=== PATIENT | female | born 1965 | race Caucasian/White ===

== ENCOUNTER → 2017-11-20 07:29 | Outpatient (CLI) | payer OTHER, SELFPAY ==
[2017-11-20 08:26] LABS: Add Manual Diff / Slide Review NO; Basophils Percent Auto 0.3 % (0-2); Eosinophils Percent Auto 0.8 % (2-4); Hematocrit 44.4 % (36-46); Hemoglobin 14.8 g/dL (12.0-16.0); Lymphocytes Percent Auto 41.1 % (25-40); Mean Corpuscular HGB Conc 33.3 % (30-36); Mean Corpuscular Hemoglobin 29.6 PG (26-34); Mean Corpuscular Volume 88.9 fL (80-100); Monocytes Percent Auto 6.5 % (3-14); Neutrophils Absolute Auto 3600 /uL (3000-5900); Neutrophils Percent Auto 51.3 % (50-75); Platelet Count 387 X10^3/uL (150-400); Red Blood Cell Count 4.99 X10^6/uL (4.0-5.2); Red Cell Distribution Width 13.7 % (11.6-14.8); White Blood Cell Count 7.1 X10^3/uL (4.5-11.0)
[2017-11-20 09:11] LABS: Alanine Aminotransferase 25 IU/L (9-52); Albumin 4.5 g/dL (3.5-5.0); Albumin Globulin Ratio 1.3 (1.0-2.8); Alkaline Phosphatase 54 U/L (38-126); Aspartate Aminotransferase 21 IU/L (14-36); Bilirubin Total 0.5 mg/dL (0.2-1.3); Blood Urea Nitrogen 16 mg/dL (7-17); Calcium 9.2 mg/dL (8.4-10.2); Carbon Dioxide 28 mmol/L (22-32); Chloride 105 mmol/L (98-107); Cholesterol 240 mg/dL (140-199); Estimated Glomerular Filt Rate > 60.0 mL/min (>60); Globulin 3.4 g/dL (1.7-4.1); Glucose 97 mg/dL (70-100); HDL Cholesterol 51 mg/dL (40-60); HEMOLYSIS < 15 (0-50); LDL Cholesterol Calculated 151 mg/dL (<100); Sodium 146 mmol/L (137-145); Total Protein 7.9 g/dL (6.3-8.2); Triglycerides 188 mg/dL (35-150)
[2017-11-20 09:55] LABS: TSH w/ Reflex to FT4 2.31 uIU/mL (0.47-4.68)
== END ==
PROVIDERS: PCP Family Medicine; Visit Provider Family Medicine
DX: Z13.220 Encounter for screening for lipoid disorders (principal)
CPT/HCPCS: 36415; 80053; 80061; 84443; 85025

== ENCOUNTER 2019-03-10 12:02 | Day surgery (SDC) | payer OTHER, SELFPAY ==
[2019-03-10 12:23] VITALS: BP 157/86; PULSE 82; RESP 16; TEMP 36.7; O2SAT 99; BMI 31.1
[2019-03-10] MEDS: SODIUM CHLORIDE 0.9% 1,000 ML 200 ML IV (12:40)
--- NOTE | 2019-03-10 13:10 | PM.HP.1 ---
History of Present Illness History of Present Illness Date Patient Seen: 03/10/19 Time Patient Seen: 13:10 Chief complaint: [id number] Narrative: Patient presents for colorectal screening. They have never had any previous examination for such. No personal or family history of colon cancer. On further history denies any recent gastrointestinal symptoms. No nausea, vomiting, abdominal pain, loss of appetite, unexplained weight loss, change in bowel habits, diarrhea, constipation, melena, hematochezia, or bright red blood per rectum. Patient History Medical History Abnormal Pap smear of cervix (Chronic ~1996) Anxiety (Chronic ~1989) Chronic back pain (Chronic ~2017) Colitis (Chronic ~2005) Eczema (Chronic ~2001) Irregular menstrual cycle (Chronic ~2015) Irritable bowel syndrome (Chronic ~1993) Seasonal allergies (Chronic) Family & Social History Family History Father MVA (motor vehicle accident) Grandfather No problems noted. Grandmother Cancer Mother No problems noted. Grandfather Sepsis Grandmother No problems noted. Sister Cardiomyopathy Social History: household members spouse Tobacco & Substance use: Smoking Status Never smoker alcohol intake current Substance Use Type does not use Meds Home Medications and Allergies Home Medications Medication Instructions Recorded Confirmed Type omeprazole 20 mg capsule,delayed 20 mg PO DAILY #30 cap 12/07/18 12/07/18 Rx release Allergies Allergy/AdvReac Type Severity Reaction Status Date / Time Sulfa (Sulfonamide Allergy Severe Anxiety Verified 12/07/18 10:56 Antibiotics) [SULFA (SULFONAMIDE ANTIBIOTICS)] Review of Systems Review of Systems Narrative: A 10 point review of systems is negative except as noted in the HPI Exam Vital Signs (past 8 hours): - 03/10/19 12:23 Temperature 98.0 F Pulse Rate 82 Respiratory Rate 16 Blood Pressure 157/86 H Pulse Oximetry 99 Oxygen Delivery Method Room Air Narrative Exam Narrative: General-no acute distress, well nourished HEENT-moist mucous membranes, no scleral icterus Neck-supple, no lymphadenopathy Chest- non labored respirations, clear to auscultation bilaterally Cardiac-regular rate no peripheral edema Abdomen-soft, nontender, non distended Extremities-warm, well perfused Neurological-alert and oriented, no focal deficits Assessment & Plan Assessment and plan (1) Screening for colon cancer: Current visit: Yes Status: Acute Assessment & Plan narrative: The patient requires colorectal screening and colonoscopy is recommended. Technical details were discussed. Risks, benefits, alternatives explained. Risks including but not limited to myocardial infarction, aspiration, bleeding, pain, missed lesion, incomplete examination, need for further radiographic studies, colonic perforation, and need for major abdominal surgery were discussed. All questions were answered to their satisfaction, and they are in agreement with this plan.
[2019-03-10] MEDS: MIDAZOLAM 5 MG/5 ML VIAL IV (13:12)
[2019-03-10] MEDS: fentaNYL 250 MCG/5 ML INJ IV (13:13)
--- NOTE | 2019-03-10 13:38 | P.HP_ITS ---
History of Present Illness History of Present Illness Chief complaint: [id number] Narrative: Patient presents for colorectal screening. They have never had any previous examination for such. No personal or family history of colon cancer. On further history denies any recent gastrointestinal symptoms. No nausea, vom iting, abdominal pain, loss of appetite, unexplained weight loss, change in bowel habits, diarrhea, constipation, melena, hematochezia, or bright red blood per rectum. Patient History Medical History Abnormal Pap smear of cervix (Chronic ~1996) Anxiety (Chronic ~1989) Chronic back pain (Chronic ~2017) Colitis (Chronic ~2005) Eczema (Chronic ~2001) Irregular menstrual cycle (Chronic ~2015) Irritable bowel syndrome (Chronic ~1993) Seasonal allergies (Chronic) Family & Social History Family History Father MVA (motor vehicle accident) Grandfather No problems noted. Grandmother Cancer Mother No problems noted. Grandfather Sepsis Grandmother No problems noted. Sister Cardiomyopathy Social History: household members spouse Tobacco & Substance use: Smoking Status Never smoker alcohol intake current Substance Use Type does not use Meds Home Medications and Allergies Home Medications Medication Instructions Recorded Confirmed Type omeprazole 20 mg capsule,delayed 20 mg PO DAILY #30 cap 12/07/18 12/07/18 Rx release Allergies Allergy/AdvReac Type Severity Reaction Status Date / Time Sulfa (Sulfonamide Allergy Severe Anxiety Verified 12/07/18 10:56 Antibiotics) [SULFA (SULFONAMIDE ANTIBIOTICS)] Exam Vital Signs (past 8 hours): - 03/10/19 12:23 Temperature 98.0 F Pulse Rate 82 Respiratory Rate 16 Blood Pressure 157/86 H Pulse Oximetry 99 Oxygen Delivery Method Room Air
--- NOTE | 2019-03-10 13:39 | PM.OP.ENDO ---
Operative Date/Time/Diagnoses Date of procedure: 03/10/19 Time of procedure: 13:39 Pre-op diagnosis: screening Post-op diagnosis: same Procedure & Clinicians Study performed: Colonoscopy Same procedure as scheduled: Yes Indications: 53-year-old female no prior colonoscopy presents for routine screening. Procedure Notes SCOAP/Timeout: Performed Procedure in detail: Patient placed in left lateral decubitus position. Time out was performed. Procedural sedation was administered with Versed and Fentanyl. A rectal exam demonstrated no external hemorrhoids no internal masses. Colonoscopy scope was placed into the rectum and advanced through the colon to the cecum. The ileocecal valve was identified. The scope was then slowly withdrawn examining colon thoroughly in all directions. The colonoscopy was notable for the following 1. No masses or polyps 2. Sigmoid diverticulosis 3. Quality of prep excellent Scope withdrawal time: 6 Sedation minutes: 23 Findings: diverticulosis Specimen(s): none sent Complications: none Impression: Diverticulosis Post-procedure Recommendations: Colonscopy in 10 years Disposition: same day surgery
[2019-03-10 13:42] VITALS: BP 129/85; PULSE 88; RESP 13; TEMP 36.5; O2SAT 95
[2019-03-10 13:47] VITALS: BP 130/79; PULSE 97; RESP 17; TEMP 36.9; O2SAT 97
[2019-03-10 13:52] VITALS: BP 141/88; PULSE 81; RESP 18; TEMP 36.8; O2SAT 97
[2019-03-10 13:57] VITALS: BP 130/83; PULSE 78; RESP 12; TEMP 36.2; O2SAT 97
[2019-03-10 14:30] VITALS: BP 126/82; PULSE 67; RESP 12; TEMP 36.5; O2SAT 99
== END 2019-03-10 14:37 | disposition home or self-care (01) ==
PROVIDERS: PCP Family Medicine; Visit Provider Surgery
PROC: 0DJD8ZZ Inspection of Lower Intestinal Tract, Via Natural or Artificial Opening Endoscopic (ICD-10-PCS; CPT 45378; principal; 2019-03-10 13:00)
DX: Z12.11 Encounter for screening for malignant neoplasm of colon (principal); K57.30 Diverticulosis of large intestine without perforation or abscess without bleeding
CPT/HCPCS: 45378; 99152; J2250; J3010

== ENCOUNTER → 2019-03-24 15:18 | Outpatient (CLI) | payer OTHER, SELFPAY ==
--- NOTE | 2019-03-24 15:19 | DI.MG.S_ITS ---
BILATERAL DIGITAL SCREENING MAMMOGRAM 3D/2D WITH CAD: 03/24/2019 CLINICAL: Routine screening. Comparison is made to exams dated: 12/05/2015 mammogram and 11/09/2013 mammogram - [facility]. There are scattered fibroglandular elements in both breasts. Current study was also evaluated with a Computer Aided Detection (CAD) system. No significant masses, calcifications, or other findings are seen in either breast. There has been no significant interval change. IMPRESSION: NEGATIVE There is no mammographic evidence of malignancy. A 1 year screening mammogram is recommended. This exam was interpreted at Station ID: [id number]. NOTE: For mammograms, a report in lay terms will be sent to the patient. Approximately 15% of breast malignancies will not be visualized mammographically. In the management of a palpable breast mass, a negative mammogram must not discourage biopsy of a clinically suspicious lesion. Electronically Signed By: Daniel tabor/jassi:03/25/2019 18:22:32 letter sent: Normal Exam ACR BI-RADS Category 1: Negative 3341F
== END ==
PROVIDERS: PCP Family Medicine; Referring Provider Family Medicine; Visit Provider Family Medicine
DX: Z12.31 Encounter for screening mammogram for malignant neoplasm of breast (principal)
CPT/HCPCS: 77063; 77067

== ENCOUNTER → 2019-08-18 11:57 | Outpatient (CLI) | payer OTHER, SELFPAY ==
[2019-08-18 13:30] LABS: Appearance Urine UA CLEAR; Bilirubin Urine UA NEGATIVE (NEGATIVE); Color Urine UA YELLOW; Glucose Urine UA NEGATIVE (Negative); Ketones Urine UA NEGATIVE (NEGATIVE); Leukocyte Esterase Urine UA NEGATIVE (NEGATIVE); Nitrite Urine UA NEGATIVE (Negative); Occult Blood Urine UA 1+ (Negative); Protein Urine UA NEGATIVE (Negative); Specific Gravity Urine UA <=1.005 (1.000-1.035); Urobilinogen Urine UA 0.2 E.U./dL (0.2)
[2019-08-18 13:43] LABS: Bacteria Urine None Seen
[2019-08-18 13:54] LABS: RBC Urine 0-1/HPF (0-5/HPF); Squamous Epithelial Cell Urine 0-1 /HPF (0-5/HPF); WBC Urine 0-1/HPF (0-5/HPF)
[2019-08-18 13:55] LABS: Culture Indicated Urine Cult Not Indicated
== END ==
PROVIDERS: PCP Family Medicine; Referring Provider Family Medicine; Visit Provider Family Medicine
DX: R30.0 Dysuria (principal)
CPT/HCPCS: 81003; 81015

== ENCOUNTER → 2019-08-25 10:38 | Outpatient (CLI) | payer OTHER, SELFPAY ==
--- NOTE | 2019-08-25 10:44 | DI.CT.S_ITS ---
PROCEDURE: CT KIDNEY URETER BLADDER (KUB) INDICATIONS: flank pain TECHNIQUE: Noncontrast 5 mm thick sections acquired from the diaphragms to the symphysis. 5 mm thick coronal and sagittal reformats were then performed. For radiation dose reduction, the following was used: automated exposure control, adjustment of mA and/or kV according to patient size. COMPARISON: None. FINDINGS: Image quality: Excellent. Lung bases: Lung bases are clear. Heart size is normal. Urinary system: Both kidneys are normal in size. No kidney stones. No hydronephrosis or perinephric fat stranding. Both ureters appear non-dilated throughout their expected courses. Bladder wall thickness is normal; no calcified bladder stones. Other solid organs: Liver is normal in size. Gallbladder appears normal . Pancreas is normal in contours. Spleen is normal in size. No adrenal nodules. Peritoneum and bowel: Unenhanced bowel loops demonstrate normal wall thickness and caliber. No free fluid or air. Nodes and vessels: No retroperitoneal or mesenteric adenopathy by size criteria. Aorta and inferior vena cava are normal in caliber. Abdominal wall: No ventral hernias. Pelvis: No free pelvic fluid. No inguinal hernias or adenopathy. Bones: No suspicious bony lesions. No vertebral body compression fractures. IMPRESSION: A source of hematuria is not seen. No mass or urinary tract stone is found. This study does not include contrast administration and for this reason its ability to detect a small renal cortical carcinoma or urothelial neoplasm is limited. Dictated by: Cecilio Reyes M.D. on 08/25/2019 at 11:20 Approved by: Cecilio Reyes M.D. on 08/25/2019 at 11:49
== END ==
PROVIDERS: PCP Family Medicine; Referring Provider Family Medicine; Visit Provider Family Medicine
DX: R10.9 Unspecified abdominal pain (principal); R31.9 Hematuria, unspecified
CPT/HCPCS: 74176

== ENCOUNTER → 2021-03-19 09:50 | Outpatient (CLI) | payer OTHER, SELFPAY ==
[2021-03-19 11:03] LABS: Add Manual Diff / Slide Review NO; Basophils Absolute Auto 0 /uL (0-100); Basophils Percent Auto 0.3 % (0-2); Eosinophils Absolute Auto 0 /uL (0-450); Eosinophils Percent Auto 0.7 % (2-4); Hematocrit 44.2 % (36-46); Hemoglobin 14.8 g/dL (12.0-16.0); Lymphocytes Absolute Auto 1800 /uL (1100-4500); Lymphocytes Percent Auto 32.8 % (25-40); Mean Corpuscular HGB Conc 33.5 % (30-36); Mean Corpuscular Hemoglobin 29.5 PG (26-34); Monocytes Absolute Auto 400 /uL (0-900); Monocytes Percent Auto 6.2 % (3-14); Neutrophils Absolute Auto 3400 /uL (1500-7000); Platelet Count 324 X10^3/uL (150-400); Red Blood Cell Count 5.02 X10^6/uL (4.0-5.2); Red Cell Distribution Width 13.5 % (11.6-14.8); White Blood Cell Count 5.6 X10^3/uL (4.5-11.0)
[2021-03-19 11:13] LABS: Alanine Aminotransferase 26 IU/L (<35); Albumin 4.5 g/dL (3.5-5.0); Albumin Globulin Ratio 1.3 (1.0-2.8); Alkaline Phosphatase 62 U/L (38-126); Aspartate Aminotransferase 26 IU/L (14-36); BUN Creatinine Ratio 14.9 (6-22); Bilirubin Total 0.6 mg/dL (0.2-1.3); Blood Urea Nitrogen 13 mg/dL (7-17); Calcium 9.4 mg/dL (8.4-10.2); Carbon Dioxide 30 mmol/L (22-32); Chloride 107 mmol/L (98-107); Cholesterol 252 mg/dL (140-199); Estimated Glomerular Filt Rate > 60.0 mL/min (>60); Globulin 3.5 g/dL (1.7-4.1); Glucose 106 mg/dL (70-100); HDL Cholesterol 56 mg/dL (40-60); HEMOLYSIS < 15 (0-50); LDL Cholesterol Calculated 156 mg/dL (<100); Potassium 4.5 mmol/L (3.4-5.1); Sodium 141 mmol/L (137-145); Triglycerides 201 mg/dL (35-150)
[2021-03-19 11:49] LABS: Thyroid Stimulating Hormone 1.69 uIU/mL (0.47-4.68)
== END ==
PROVIDERS: PCP Family Medicine; Referring Provider Physician Assistant; Visit Provider Physician Assistant
DX: E78.5 Hyperlipidemia, unspecified (principal); Z13.0 Encounter for screening for diseases of the blood and blood-forming organs and certain disorders involving the immune mechanism
CPT/HCPCS: 36415; 80053; 80061; 84443; 85025

== ENCOUNTER → 2021-05-31 11:07 | Outpatient (CLI) | payer OTHER, SELFPAY ==
[2021-05-31 12:46] LABS: Cholesterol 169 mg/dL (140-199); HDL Cholesterol 60 mg/dL (40-60); LDL Cholesterol Calculated 70 mg/dL (<100); Triglycerides 193 mg/dL (35-150)
== END ==
PROVIDERS: PCP Family Medicine; Referring Provider Physician Assistant; Visit Provider Physician Assistant
DX: E78.2 Mixed hyperlipidemia (principal)
CPT/HCPCS: 36415; 80061

== ENCOUNTER → 2022-05-20 10:55 | Outpatient (CLI) | payer OTHER, SELFPAY | PROVIDERS: PCP Family Medicine; Visit Provider Physician Assistant | DX: N39.0 Urinary tract infection, site not specified (principal) | CPT/HCPCS: 87086 ==

== ENCOUNTER → 2022-05-26 08:12 | Outpatient (CLI) | payer OTHER, SELFPAY ==
[2022-05-26 09:14] LABS: Cholesterol 174 mg/dL (140-199); HDL Cholesterol 57 mg/dL (40-60); LDL Cholesterol Calculated 76 mg/dL (<100); Triglycerides 203 mg/dL (35-150)
== END ==
PROVIDERS: PCP Family Medicine; Referring Provider Physician Assistant; Visit Provider Physician Assistant
DX: E78.2 Mixed hyperlipidemia (principal); B37.31 Acute candidiasis of vulva and vagina; N95.2 Postmenopausal atrophic vaginitis
CPT/HCPCS: 36415; 80061; 87210

== ENCOUNTER → 2022-07-04 08:42 | Outpatient (CLI) | payer OTHER, SELFPAY ==
--- NOTE | 2022-07-04 08:43 | DI.US.S_ITS ---
PROCEDURE: US PELVIC COMPLETE INDICATIONS: Post menopausal bleeding TECHNIQUE: Real-time scanning was performed of the pelvic organs, with image documentation. Additional endovaginal scanning was necessary due to incomplete visualization of the adnexal and endometrial structures by transabdominal scanning. COMPARISON: None. FINDINGS: Uterus: Uterus is anteverted and normal in size at 7.3 x 5.2 x 3.4 cm. The myometrium is homogeneous. The endometrium measures 6 mm combined thickness. There is a vascular stalk located within the endometrium. Ovaries: Ovaries not visualized due to overlying bowel gas. Other: No pathologic free abdominal or pelvic fluid. IMPRESSION: Abnormal thickening of the endometrium, measuring 6 millimeters, in the setting of postmenopausal bleeding. Consider tissue sampling. Vascular stalk noted within the endometrium, which may suggest a polyp. We strive to produce accurate, complete, and clear reports of imaging services. To assist us in improving patient care, this report was composed using standard report templates and voice recognition software. Therefore, it may contain abnormal punctuation, insertions and/or omissions. Occasional wrong-word or sound-alike substitutions may occur. Though we review the report and make efforts to correct it, we do recommend that the report be read carefully in proper context to recognize any text inaccuracies. Dictated by: Bhavin Rock M.D. on 07/04/2022 at 11:37 Approved by: Bhavin Rock M.D. on 07/04/2022 at 11:39
== END ==
PROVIDERS: PCP Family Medicine; Referring Provider Family Medicine; Visit Provider Family Medicine
DX: N95.0 Postmenopausal bleeding (principal)
CPT/HCPCS: 76830; 76856

== ENCOUNTER 2022-09-12 06:46 | Day surgery (SDC) | payer OTHER, SELFPAY ==
[2022-09-09 14:55] VITALS: BMI 34.9
--- NOTE | 2022-09-12 | PATH_ITS ---
[facility] Accession Number: [id number] No. of containers..02 Tissue . 01 Material submitted: . PART A: endometrium - ENDOMETRIAL POLYP PART B: endometrium - ENDOMETRIAL CURETTINGS . 01 Diagnosis: A. Endometrial Polyp, Biopsy: Benign endometrial polyp. Negative for atypia, hyperplasia, and malignancy. . B. Endometrium, Curettings: Predominantly inactive endometrium, with stromal breakdown. Negative for hyperplasia, atypia, and malignancy. MRV 09/22/2022 1702 Local . 01 Electronically signed: . Abilio Prather MD, Pathologist NPI- [id number] . 01 Gross description: . A. Received in formalin labeled with the patient's name, and endometrial polyp consists of a single pink-castellanos polypoid structure measuring 1.4 x 1.3 x 0.5 cm. The presumed base is inked blue. The tissue is bisected and entirely submitted in cassette A1. B. Received in formalin labeled with the patient's name, and endometrial curettings consists of multiple fragments of pink-castellanos soft tissue and blood clots aggregating to 2.5 x 0.7 x 0.1 cm. The tissue is filtered into a mesh bag and entirely submitted in cassette B1. ([id number]) /MRV 09/18/2022 1556 Local . 01 Pathologist provided ICD-10: N84.0, N95.0 . 01 CPT . 332188, 221064 Specimen Comment: A courtesy copy of this report has been sent to [phone] Performed at: 01 [facility] [address] [place] [address] [address], [place], [place] [id number] MD Henry Ramos MD Phone: [phone]
[2022-09-12 07:03] VITALS: BP 144/89; PULSE 87; RESP 16; TEMP 36.2; O2SAT 144; BMI 34.9
--- NOTE | 2022-09-12 07:18 | SUR.OPER ---
Lithotomy on padded OR bed, head on pillow, arms secured on padded arm boards at <90 degrees abduction. Legs secured in padded yellow fins stirrups.
[2022-09-12] MEDS: LACTATED RINGERS 1,000 ML 84 ML IV (07:19)
--- NOTE | 2022-09-12 07:34 | PM.PREOP ---
Pre-operative Note COVID-19 COVID-19 status: Not tested Criteria for continued procedure: Non-surgical alternatives not available or appropriate per current SOC Interval Note History & Physical reviewed/Exam performed by Physician: Yes Changes to H&P: No
--- NOTE | 2022-09-12 08:12 | P.OP_ITS ---
Operative Date/Time/Diagnoses Date of procedure: 09/12/22 Time of procedure: 07:45 Pre-op diagnosis: Postmenopausal bleeding Endometrial polyp Post-op diagnosis: same Procedure & Clinicians Procedure: Procedures Operation Date: 09/12/22 07:45 Actual Procedure Side Surgeon p Hysteroscopy w. polypectomy, D&C of the uterus Gadiel Garcia MD Indications: Chhaya is a 56-year-old 2 para 2, LMP about 18 months ago who presents with recent onset of light vaginal spotting and a subsequent pelvic ultrasound showed very slight endometrial thickening along with what appears to be an endometrial polyp the ultrasound performed on 07/04/2022 shows: FINDINGS:? ?? Uterus:? Uterus is anteverted and normal in size at 7.3 x 5.2 x 3.4 cm. The myometrium is homogeneous. ? The endometrium measures 6 mm combined thickness.? There is a vascular stalk located within the endometrium. ? Ovaries:? Ovaries not visualized due to overlying bowel gas. ? Other:? No pathologic free abdominal or pelvic fluid. ? ? IMPRESSION:? Abnormal thickening of the endometrium, measuring 6 millimeters, in the setting of postmenopausal bleeding.? Consider tissue sampling. ? Vascular stalk noted within the endometrium, which may suggest a polyp. The patient has a long history of irregular and occasionally heavy menses associated with a previous history of polycystic ovarian syndrome.? Following the fairly chaotic perimenopause, the patient's stopped having vaginal bleeding about 18 months ago up until a few weeks ago when after vaginal estrogen supplementation was initiated by her primary care provider, she began having a couple of episodes of light vaginal spotting.? Potential causes for her postmenopausal bleeding discussed.? It is conceivable that the initiation of transvaginal estradiol may have triggered the episodes of bleeding but in the presence of a demonstrable, localized abnormality of the endometrial cavity, the polyp would have to be considered the primary suspect as the etiology for her bleeding.? Because the lesion is focal in nature, random endometrial biopsy by [facility] would be of little benefit and instead we discussed the benefits of proceeding with hysteroscopy and removal of the polyp.? She presents today for her scheduled surgery. Surgeon: Gadiel Garcia Anesthesia Type: General Operative Notes Findings: Single benign-appearing polyp arising from left posterolateral surface of the endometrial cavity. The remainder of the endometrial cavity is unremarkable low, bland, endometrial surface and easily visualize tubal ostia. Closure Type: not applicable Specimen(s): endometrial curettings and endometrial polyp Estimated blood loss (mL): 10 Blood products transfused: none Procedure in detail: With the patient under satisfactory general anesthesia in the modified dorsal lithotomy position, the patient was prepped and draped for hysteroscopy/D&C. A pre-surgical safety time-out was then taken in accordance with [facility] Main OR protocols. A bivalve speculum was then inserted in the vagina and the anterior lip of the cervix was grasped with a single-tooth tenaculum. The uterus is sounded to 7.5 cm and the endocervical canal was sequentially dilated to 6 mm with Hegar dilators. Hysteroscope using sterile saline distention medium was introduced into the endometrial cavity and the polyp easily identified. The endometrial cavity was documented photographically both before and after polyp removal. The hysteroscope was removed from the endometrial cavity and based on the visualized location of the polyp, the polyp was grasped at its base with polyp forceps and removed manually. Inspection of the endometrial cavity with hysteroscope showed complete removal of the polyp itself. Sharp curettage of the uterus this then performed and the endometrial curettings were submitted as a separate pathologic specimen. The procedure was then terminated by removal of the tenaculum from the anterior lip of the cervix and removal the speculum from the vagina. The patient was then awakened and transferred to the PACU for a period of observation and recovery after having tolerated the procedure well. Complications: none Post-operative Condition: stable Disposition: PACU Plan for aftercare: Routine postoperative care with follow-up planned for 2 weeks postop
[2022-09-12 08:14] VITALS: BP 118/70; PULSE 92; RESP 16; TEMP 36.6; O2SAT 95
[2022-09-12 08:19] VITALS: BP 118/47; PULSE 88; RESP 14; O2SAT 97
[2022-09-12 08:25] VITALS: BP 115/61; PULSE 81; RESP 12; O2SAT 95
[2022-09-12 08:30] VITALS: BP 119/78; PULSE 90; RESP 16; O2SAT 95
== END 2022-09-12 08:42 | disposition home or self-care (01) ==
PROVIDERS: PCP Family Medicine; Referring Provider Obstetrics & Gynecology; Visit Provider Obstetrics & Gynecology
PROC: 0UDB8ZZ Extraction of Endometrium, Via Natural or Artificial Opening Endoscopic (ICD-10-PCS; CPT 58558; principal; 2022-09-12 07:45)
DX: N95.0 Postmenopausal bleeding (principal); N84.0 Polyp of corpus uteri
CPT/HCPCS: 58558; J1100; J2250; J2405; J2704; J3010

== ENCOUNTER → 2023-03-02 17:10 | Outpatient (CLI) | payer OTHER, SELFPAY ==
--- NOTE | 2023-03-02 17:12 | DI.MG.S_ITS ---
BILATERAL DIGITAL SCREENING MAMMOGRAM 3D/2D WITH CAD: 03/02/2023 CLINICAL: Routine screening. Comparison is made to exams dated: 03/24/2019 mammogram - [facility], 12/05/2015 mammogram, and 11/09/2013 mammogram - [facility]. There are scattered areas of fibroglandular density in both breasts (category b / 25%-50% glandular tissue). Current study was also evaluated with a Computer Aided Detection (CAD) system. No significant masses, calcifications, or other findings are seen in either breast. There has been no significant interval change. IMPRESSION: NEGATIVE There is no mammographic evidence of malignancy. A 1 year screening mammogram is recommended. Based on the Tyrer Cuzick model (a risk assessment model) the patient's lifetime risk is 9.6% and her 10 year risk is 2.9%. According to the ACR, ACS, and NCCN guidelines, an annual breast MRI exam along with mammogram is recommended if the patient's lifetime risk is 20% or greater. This exam was interpreted at Station ID: [id number]. NOTE: For mammograms, a report in lay terms will be sent to the patient. Approximately 15% of breast malignancies will not be visualized mammographically. In the management of a palpable breast mass, a negative mammogram must not discourage biopsy of a clinically suspicious lesion. Electronically Signed By: Nazanin Guajardo M.D., PH.D denice/jassi:03/03/2023 13:02:26 letter sent: Normal Exam ACR BI-RADS Category 1: Negative 3341F
== END ==
PROVIDERS: PCP Family Medicine; Referring Provider Family Medicine; Visit Provider Family Medicine
DX: Z12.31 Encounter for screening mammogram for malignant neoplasm of breast (principal); R92.323 Mammographic fibroglandular density, bilateral breasts
CPT/HCPCS: 77063; 77067

== ENCOUNTER → 2023-09-03 09:52 | Outpatient (CLI) | payer OTHER, SELFPAY ==
[2023-09-03 10:38] LABS: Alanine Aminotransferase 28 IU/L (<35); Albumin 4.2 g/dL (3.5-5.0); Albumin Globulin Ratio 1.4 (1.0-2.8); Alkaline Phosphatase 68 U/L (38-126); Aspartate Aminotransferase 25 IU/L (14-36); BUN Creatinine Ratio 14.8 (6-22); Bilirubin Total 0.7 mg/dL (0.2-1.3); Blood Urea Nitrogen 13 mg/dL (7-17); Calcium 9.4 mg/dL (8.4-10.2); Carbon Dioxide 27 mmol/L (22-32); Chloride 108 mmol/L (98-107); Cholesterol 192 mg/dL (140-199); Estimated Glomerular Filt Rate > 60 mL/min (>60); Glucose 101 mg/dL (70-100); HDL Cholesterol 65 mg/dL (40-60); HEMOLYSIS < 15 (0-50); LDL Cholesterol Calculated 95 mg/dL (<100); Potassium 4.6 mmol/L (3.4-5.1); Sodium 140 mmol/L (137-145); Total Protein 7.2 g/dL (6.3-8.2); Triglycerides 162 mg/dL (35-150)
== END ==
PROVIDERS: PCP Family Medicine; Referring Provider Physician Assistant; Visit Provider Physician Assistant
DX: E78.2 Mixed hyperlipidemia (principal)
CPT/HCPCS: 36415; 80053; 80061; 84443

== ENCOUNTER → 2023-11-27 | Outpatient (CLI) | payer OTHER, SELFPAY | PROVIDERS: PCP Family Medicine; Referring Provider Internal Medicine; Visit Provider Internal Medicine | DX: Z23 Encounter for immunization (principal) | CPT/HCPCS: 90471; 90656 ==

== ENCOUNTER → 2024-03-03 15:12 | Outpatient (CLI) | payer OTHER, SELFPAY ==
--- NOTE | 2024-03-03 15:14 | DI.US.S_ITS ---
PROCEDURE: US PELVIC COMPLETE INDICATIONS: postmenopausal bleeding TECHNIQUE: Real-time scanning was performed of the pelvic organs, with image documentation. Additional endovaginal scanning was necessary due to incomplete visualization of the adnexal and endometrial structures by transabdominal scanning. COMPARISON: [facility], , PELVIC COMPLETE, 07/04/2022, 8:49. FINDINGS: Uterus: Uterus is anteverted and normal in size at 6.5 x 5.1 x 3.8 cm. The myometrium is heterogeneous. The endometrium measures four mm combined thickness. Normal vascularity. No endometrial masses. Ovaries: Neither ovary was seen. No suspicious adnexal mass. Other: No pathologic free abdominal or pelvic fluid. IMPRESSION: Normal endometrial thickness for postmenopausal female. We strive to produce accurate, complete, and clear reports of imaging services. To assist us in improving patient care, this report was composed using standard report templates and voice recognition software. Therefore, it may contain abnormal punctuation, insertions and/or omissions. Occasional wrong-word or sound-alike substitutions may occur. Though we review the report and make efforts to correct it, we do recommend that the report be read carefully in proper context to recognize any text inaccuracies. Dictated by: Adriana Chaudhary M.D. on 03/04/2024 at 12:43 Approved by: Adriana Chaudhary M.D. on 03/04/2024 at 12:44
== END ==
LOC: US 15:13
PROVIDERS: PCP Family Medicine; Referring Provider Family Medicine; Visit Provider Family Medicine
DX: N95.0 Postmenopausal bleeding (principal)
CPT/HCPCS: 76830; 76856

== ENCOUNTER → 2024-03-04 16:07 | Outpatient (CLI) | payer OTHER, SELFPAY ==
--- NOTE | 2024-03-04 16:08 | DI.MG.S_ITS ---
BILATERAL DIGITAL SCREENING MAMMOGRAM 3D/2D WITH CAD: 03/04/2024 CLINICAL: Routine screening. Comparison is made to exams dated: 03/02/2023 mammogram, 03/24/2019 mammogram - [facility], and 12/05/2015 mammogram - [facility]. There are scattered areas of fibroglandular density (category b / 25%-50% glandular tissue). Current study was also evaluated with a Computer Aided Detection (CAD) system. No significant masses, calcifications, or other findings are seen in either breast. There has been no significant interval change. IMPRESSION: NEGATIVE There is no mammographic evidence of malignancy. A 1 year screening mammogram is recommended. Based on the Tyrer Cuzick model (a risk assessment model) the patient's lifetime risk is 9.5% and her 10 year risk is 3.1%. According to the ACR, ACS, and NCCN guidelines, an annual breast MRI exam along with mammogram is recommended if the patient's lifetime risk is 20% or greater. This exam was interpreted at Station ID: [id number]. NOTE: For mammograms, a report in lay terms will be sent to the patient. Approximately 15% of breast malignancies will not be visualized mammographically. In the management of a palpable breast mass, a negative mammogram must not discourage biopsy of a clinically suspicious lesion. Electronically Signed By: Nazanin Guajardo M.D., Ph.D. denice/jassi:03/04/2024 17:36:18 letter sent: Normal Exam ACR BI-RADS Category 1: Negative
== END ==
PROVIDERS: PCP Family Medicine; Referring Provider Family Medicine; Visit Provider Family Medicine
DX: Z12.31 Encounter for screening mammogram for malignant neoplasm of breast (principal)
CPT/HCPCS: 77063; 77067

== ENCOUNTER 2024-08-30 14:42 | Emergency (ER) | payer OTHER, SELFPAY ==
[2024-08-30] VITALS (10 sets, daily range): BP systolic 125–163; BP diastolic 70–100; PULSE 83–105; RESP 18; TEMP 36.4; O2SAT 94–100; BMI 34.4
--- NOTE | 2024-08-30 14:54 | EKG_ITS ---
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
--- NOTE | 2024-08-30 14:54 | DI.RAD.S_ITS ---
PROCEDURE: XR CHEST 1V INDICATIONS: Chest Pain TECHNIQUE: One view of the chest was acquired. COMPARISON: None. FINDINGS: Surgical changes and devices: None. Lungs and pleura: An incomplete inspiratory result is noted, causing a crowded appearance to the lung markings. No focal infiltrates are seen. No pneumothorax or significant pleural effusions are seen. Mediastinum: Mediastinal contours appear normal. Heart size is normal. Bones and chest wall: No suspicious bony lesions. Age-appropriate bony degenerative changes are seen. Overlying soft tissues appear unremarkable. IMPRESSION: Low lung volumes, without an acute abnormality seen by plain film. Dictated by: Luis F Redd M.D. on 08/30/2024 at 14:14 Approved by: Luis F Redd M.D. on 08/30/2024 at 14:15
[2024-08-30 15:12] LABS: Add Manual Diff / Slide Review NO; Hematocrit 43.8 % (36-46); Hemoglobin 15.1 g/dL (12.0-16.0); Lymphocytes Absolute Auto 2700 /uL (1100-4500); Mean Corpuscular HGB Conc 34.4 % (30-36); Mean Corpuscular Hemoglobin 30.3 PG (26-34); Mean Corpuscular Volume 88.1 fL (80-100); Platelet Count 338 X10^3/uL (150-400)
[2024-08-30 15:18] LABS: INR 0.9 (0.9-1.3); Prothrombin Time 10.5 SECONDS (9.4-12.5)
[2024-08-30 15:21] LABS: PTT Partial Thromboplastin Tim 33 SECONDS (25.1-36.5)
[2024-08-30 15:27] LABS: Alanine Aminotransferase 31 IU/L (<35); Albumin 4.7 g/dL (3.5-5.0); Albumin Globulin Ratio 1.3 (1.0-2.8); Alkaline Phosphatase 65 U/L (38-126); Blood Urea Nitrogen 14 mg/dL (7-17); Calcium 9.1 mg/dL (8.4-10.2); Carbon Dioxide 26 mmol/L (22-32); Chloride 103 mmol/L (98-107); Creatine Kinase 116 U/L (30-135); Estimated Glomerular Filt Rate > 60 mL/min (>60); Globulin 3.5 g/dL (1.7-4.1); Glucose 124 mg/dL (70-99); HEMOLYSIS 37 (0-50); Lipase 107 U/L (23-300); Magnesium 2.1 mg/dL (1.6-2.3); Potassium 4.0 mmol/L (3.4-5.1); Sodium 138 mmol/L (137-145); Total Protein 8.2 g/dL (6.3-8.2)
[2024-08-30 15:39] LABS: NT-proBNP (BNP-Adult 18+) 39 pg/mL (<125); Troponin I < 0.012 ng/mL (0.01-0.034)
--- NOTE | 2024-08-30 16:58 | EKG_ITS ---
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
[2024-08-30 17:51] LABS: Troponin I < 0.012 ng/mL (0.01-0.034)
--- NOTE | 2024-08-30 18:46 | ED_ITS ---
HPI - Arrhythmia/Palpitations General Chief Complaint: Arrhythmia/Palpitations Stated Complaint: Pain in right arm ,heart is racing,heavy breathing Time Seen by Provider: 08/30/24 18:46 Source: patient Mode of arrival: Ambulatory History of Present Illness HPI narrative: Patient is a 58-year-old female past medical history of hyperlipidemia comes into the ED from home for evaluation of multiple complaints, states that she has been having 10 days of right upper elbow discomfort weakness also associated with pain to her neck shoulder whenever she moves it, describes it as shocking/electrical sensation, he also is complaining of some chest heaviness, states that she went to the walk-in clinic today for symptoms and was told she had high blood pressure and was told to come into the ED. she denies any trauma or falls denies any blood thinners denies any other symptoms such as headache visual disturbances nausea vomiting fever chills or any other GI/ symptoms time. Related Data Previous Rx's ?Medication ?Instructions ?Recorded rosuvastatin 10 mg tablet 10 mg PO QPM for cholesterol #90 02/22/24 tabs estradiol 0.01% (0.1 mg/gram) 1 appful vaginal DAILY # 42.5 grams 04/14/24 vaginal cream tirzepatide (weight loss) 2.5 2.5 mg (0.5 mL) SUBCUT Q WEEK 4 08/25/24 mg/0.5 mL subcutaneous solution weeks #2 mL (Zepbound) gabapentin 100 mg capsule 100 mg PO BID PRN Pain 1 wee k #14 08/30/24 caps Allergies Allergy/AdvReac Type Severity Reaction Status Date / Time Sulfa (Sulfonamide Allergy Severe Anxiety Verified 08/30/24 14:54 Antibiotics) (SULFA (SULFONAMIDE ANTIBIOTICS)) Review of Systems Review of Systems Narrative: General: Denies fever, chills, weight loss HEENT: Denies headache, eye drainage, eye irritation, head trauma, sore throat, voice change Cardiovascular: Positive chest pain, denies palpitations, tachycardia Respiratory: Denies any shortness of breath, cough, wheeze, stridor GI/: Denies any abdominal pain, nausea, vomiting, diarrhea, bright red blood per rectum, melanotic stools, urinary frequency, urinary retention, dysuria, hematuria MSK: Positive right arm/shoulder pain Skin: Denies any rashes, lesions, discoloration Neuro: Denies any headache, lightheadedness, dizziness, fainting, weakness Psych: Denies SI/HI Patient History Medical History (Updated 08/30/24 @ 20:28 by Ion Lizama DO) Endometrial polyp Abnormal vaginal bleeding with endometrial thickness greater than 5 mm present on transvaginal ultrasound in postmenopausal patient Eczema (~2001) Seasonal allergies Anxiety (~1989) Chronic back pain (~2017) Irregular menstrual cycle (~2015) Abnormal Pap smear of cervix (~1996) Irritable bowel syndrome (~1993) Colitis (~2005) Family History Father MVA (motor vehicle accident) Grandfather No problems noted. Grandmother Cancer Mother No problems noted. Grandfather Sepsis Grandmother No problems noted. Sister Cardiomyopathy Social History marital status: household members: spouse Smoking Status: Never smoker alcohol intake: current substance use type: does not use Smoking Status: Never smoker Exam Narrative Exam Narrative: General: Cooperative, well-developed, not in acute distress HEENT: Normocephalic, atraumatic, PERRLA, normal sclera, eyelids normal Neck: Active full range of motion, atraumatic Chest: Normal to inspection, negative crepitus, no overlying erythema ecchymosis Respiratory: Normal respiratory effort, not in acute respiratory distress, clear to auscultation bilaterally negative cough, wheeze, tachypnea, rhonchi, rales Cardiology: Regular rate rhythm negative gallop, murmur, rubs GI/: No tenderness to palpation, soft, non rigid, normal to inspection, exam deferred MSK: Full active range of motion in all 4 extremities, atraumatic, no tenderness to palpation of any bony prominences, positive Spurling test of the right otherwise neurovascularly intact, minor reproduces tenderness to palpation upon palpating the SCM of the right Skin: No rashes or lesions noted Neuro: Alert awake oriented x3, moves all 4 extremities spontaneously, cranial nerves intact, able to answer all questions appropriately follows commands appropriately Psych: Cooperative, negative suicidal or homicidal ideations Initial Vital Signs Initial Vital Signs: Vital Signs Temperature 97.6 F 08/30/24 14:46 Pulse Rate 95 H 08/30/24 14:46 Respiratory Rate 18 08/30/24 14:46 Blood Pressure 163/100 H 08/30/24 14:46 Pulse Oximetry 99 08/30/24 14:46 Oxygen Delivery Method Room Air 08/30/24 14:46 Course Orders Ordered: ED Orders 08/30/24 14:54 XR chest 1V Stat EKG-12 Lead Stat 08/30/24 15:05 Complete Blood Count AUTO DIFF Stat Comprehensive Metabolic Panel Stat Lipase Stat Magnesium Stat NT-proBNP (BNP-Adult 18+) Stat PTT Partial Thromboplastin Stephen Stat Prothrombin Time INR Stat Troponin & CK Cardiac Panel Stat 08/30/24 17:20 Troponin I Stat Discontinued Medications Aspirin (Aspirin 81 Mg Chew Tab) 324 mg PO NOW ONE Stop: 08/30/24 14:55 Last Admin: 08/30/24 16:26 Dose: Not Given Documented By: LM Vital Signs Vital signs: Vital Signs - 8 hr 08/30/24 14:46 Temperature 97.6 F Pulse Rate 95 H Respiratory Rate 18 Blood Pressure 163/100 H Pulse Oximetry 99 Oxygen Delivery Method Room Air MDM - Arrhythmia/Palpitations Differential Diagnosis Differential diagnosis: Likely sinus tachycardia, artial fibrillation, artial flutter, ventricular premature beats, supraventricular tachycardia and other (ACS, pneumonia, electrolyte abnormality, cervical radiculopathy) Lab Data 08/30/24 15:05 08/30/24 15:05 Labs: Lab Results 08/30/24 08/30/24 Range/Units 15:05 17:20 WBC 9.8 (4.5-11.0) X10^3/uL RBC 4.97 (4.0-5.2) X10^6/uL Hgb 15.1 (12.0-16.0) g/dL Hct 43.8 (36-46) % MCV 88.1 (80-100) fL MCH 30.3 (26-34) PG MCHC 34.4 (30-36) % RDW 14.3 (11.6-14.8) % Plt Count 338 (150-400) X10^3/uL Neut % (Auto) 63.9 (50-75) % Lymph % (Auto) 27.1 (25-40) % Dickson % (Auto) 7.4 (3-14) % Eos % (Auto) 1.1 L (2-4) % Baso % (Auto) 0.5 (0-2) % Neut # (Auto) 6300 (8759-7837) /uL Lymph # (Auto) 2700 (4474-4392) /uL Dickson # (Auto) 700 (0-900) /uL Eos # (Auto) 100 (0-450) /uL Baso # (Auto) 0 (0-100) /uL PT 10.5 (9.4-12.5) SECONDS INR 0.9 (0.9-1.3) APTT 33 (25.1-36.5) SECONDS Sodium 138 (137-145) mmol/L Potassium 4.0 (3.4-5.1) mmol/L Chloride 103 (98-107) mmol/L Carbon Dioxide 26 (22-32) mmol/L BUN 14 (7-17) mg/dL Creatinine 0.81 (0.52-1.04) mg/dL Estimated GFR > 60 (>60) mL/min BUN/Creatinine Ratio 17.3 (6-22) Glucose 124 H (70-99) mg/dL Calcium 9.1 (8.4-10.2) mg/dL Magnesium 2.1 (1.6-2.3) mg/dL Total Bilirubin 0.8 (0.2-1.3) mg/dL AST 44 H (14-36) IU/L ALT 31 (<35) IU/L Alkaline Phosphatase 65 (38-126) U/L Total Creatine Kinase 116 (30-135) U/L Troponin I < 0.012 < 0.012 (0.01-0.034) ng/mL NT-Pro-B Natriuret Pep 39 (<125) pg/mL Total Protein 8.2 (6.3-8.2) g/dL Albumin 4.7 (3.5-5.0) g/dL Globulin 3.5 (1.7-4.1) g/dL Albumin/Globulin Ratio 1.3 (1.0-2.8) Lipase 107 (23-300) U/L Imaging Data Chest x-ray: Radiologist's Impresson: [address] [address] XRay Report Signed Patient: Chhaya Dangelo MR#: [id number] : 1965 Acct:[id number] Age/Sex: 58 / F Date of Service: 08/30/24 Loc: ED Accession Number: [id number] Procedure: XR chest 1V Ordering Provider: Vito Nation MD PROCEDURE: XR CHEST 1V INDICATIONS: Chest Pain TECHNIQUE: One view of the chest was acquired. COMPARISON: None. FINDINGS: Surgical changes and devices: None. Lungs and pleura: An incomplete inspiratory result is noted, causing a crowded appearance to the lung markings. No focal infiltrates are seen. No pneumothorax or significant pleural effusions are seen. Mediastinum: Mediastinal contours appear normal. Heart size is normal. Bones and chest wall: No suspicious bony lesions. Age-appropriate bony degenerative changes are seen. Overlying soft tissues appear unremarkable. IMPRESSION: Low lung volumes, without an acute abnormality seen by plain film. ECG Data Interpretation: EKG interpreted by ED physician sinus 97 beats per minute QTC 449, normal axis nonspecific ST changes no STEMI MDM Narrative Medical decision making narrative: Patient is a 58-year-old female past medical history hyperlipidemia presenting for multiple complaints, she states that over the past 10 days she has been having some right upper arm pain, feels like it is heavy/shooting sensations, she states that she does work on the computer a lot, states that today it was worse, states that she was out for lunch and started developing chest tightness as well. She states that she does have a family history of cardiac issues therefore she had some concerns and was worried and went to the walk-in clinic, she states that when she was there blood pressure was little elevated and started feel like she was having a panic attack, at this time she is not having any chest pain shortness of breath, patient's EKG nonischemic in nature, chest x-ray without any acute cardiopulmonary abnormality. Troponin negative x2, waning lab work is unremarkable. On exam patient did have positive Spurling's test and some reproducible pain after palpation of the right SCM symptoms more likely secondary to possible cervical radiculopathy, therefore we will trial patient on gabapentin, did instruct her to follow up with Cardiology given patient with chest tightness, however patient with a heart score of 2, patient was given strict return precautions she verbalized understanding of this and agrees to being discharged home with outpatient follow up. Discharge Plan Departure Patient Disposition: Home Clinical Impression: Chest pain, Cervical radiculopathy Activity Restrictions/Additional Instructions: Please follow up with your primary care doctor, Cardiology and Orthopedic surgery as needed Please read the discharge instructions sheet carefully and bring all papers to all doctor follow-up visits, as it may contain information that your doctor may want to see. Disease processes change and evolve, if your symptoms worsen or if you develop any new symptoms that are concerning to you please return for evaluation. Your evaluation today does not show any evidence of any life- threatening/serious illnesses requiring admission to the hospital or surgery. Please follow-up with your doctor for re-evaluation in approximately 1 day. Seek immediate medical attention for any worrisome symptoms. *If you do not have a primary care provider please contact the [facility] Resource line at [phone]. They will ask some questions about your medical history and help get you set up with a doctor in the community. Prescriptions: New gabapentin 100 mg capsule 100 mg PO BID PRN (Reason: Pain) 7 Days Qty: 14 0RF No Action Zepbound 2.5 mg/0.5 mL solution 2.5 mg SUBCUT QWEEK 28 Days Qty: 2 0RF Rx Instructions: use 2.5mg weekly for 4 weeks, then start 5mg weekly for 4 weeks rosuvastatin 10 mg tablet 10 mg PO QPM Qty: 90 3RF estradiol 0.01 % (0.1 mg/gram) cream 1 appful vaginal DAILY Qty: 42.5 1RF Rx Instructions: for 14 days Referrals: Broderick Valdez MD [Physician, Cardiology] Referral Note: Chest pain Antony Hodges MD [Primary Care Provider, Family Practice] Sang Castillo MD [Physician, Orthopedic Surgery] Stand Alone Forms: Patient Portal/API
== END 2024-08-30 20:37 | disposition home or self-care (01) ==
PROVIDERS: Emergency Medicine; Emergency Provider Student in an Organized Health Care Education/Training Program; PCP Family Medicine
DX: R07.9 Chest pain, unspecified (principal); R00.2 Palpitations; M54.12 Radiculopathy, cervical region
CPT/HCPCS: 36415; 71045; 80053; 82550; 83690; 83735; 83880; 84484; 85025; 85610; 85730; 93005; 99283; 99284

== ENCOUNTER → 2024-09-07 08:08 | Outpatient (CLI) | payer OTHER, SELFPAY ==
[2024-09-07 08:51] LABS: Cholesterol 178 mg/dL (140-199); HDL Cholesterol 58 mg/dL (40-60); Triglycerides 257 mg/dL (35-150)
[2024-09-07 09:20] LABS: TSH w/ Reflex to FT4 2.01 uIU/mL (0.47-4.68)
== END ==
PROVIDERS: PCP Family Medicine; Referring Provider Family Medicine; Visit Provider Family Medicine
DX: Z00.00 Encounter for general adult medical examination without abnormal findings (principal)
CPT/HCPCS: 36415; 80061; 84443

== ENCOUNTER → 2024-09-08 11:10 | Outpatient (CLI) | payer OTHER, SELFPAY ==
--- NOTE | 2024-09-08 11:11 | DI.RAD.S_ITS ---
PROCEDURE: XR CERVICAL SPINE 2V OR 3V INDICATIONS: neck pain TECHNIQUE: 3 view(s) of the cervical spine were acquired. COMPARISON: None. FINDINGS: Bones: No fractures or dislocations to the C7 level. The lateral masses of C1 appear intact on the odontoid view. No suspicious bony lesions. Soft tissues: No prevertebral soft tissue swelling. IMPRESSION: No displaced fracture or traumatic subluxation. Dictated by: Steven Nunes M.D. on 09/10/2024 at 23:05 Approved by: Steven Nunes M.D. on 09/10/2024 at 23:06
== END ==
PROVIDERS: PCP Family Medicine; Referring Provider Family Medicine; Visit Provider Family Medicine
DX: M54.12 Radiculopathy, cervical region (principal)
CPT/HCPCS: 72040

== ENCOUNTER → 2024-11-04 15:20 | Outpatient (CLI) | payer OTHER, SELFPAY ==
--- NOTE | 2024-11-07 07:44 | DI.NM.S_ITS ---
DATE OF SERVICE: 11/04/2024 PROCEDURE: Exercise stress test. INDICATIONS: Chest discomfort. CARDIAC STRESS: The patient underwent exercise stress test under the supervision of an attending staff. The patient walked on Mauri protocol for 7 minutes and 13 seconds, achieved maximum heart rate of 161, which was 102% of target heart rate, 10.1 METs of workload, and JOSE -1%. Baseline blood pressure 140/100 and peak blood pressure was 180/106 mmHg. Baseline rhythm was sinus. During stress, no convincing ischemic changes seen. The patient has frequent predominantly isolated PVCs which were monomorphic and some ventricular couplets without any ventricular tachycardia. No chest pain during exercise. The patient felt shortness of breath. At 5 minutes into the recovery, heart rate was 115 with sinus tachycardia without any ischemic changes. CONCLUSION: Exercise stress test is negative for inducible ischemia. Fair exercise tolerance. Hypertensive to begin with resting blood pressure 140/100 and peak blood pressure 180/106. No chest pain. She had shortness of breath. During stress, isolated PVCs and some ventricular couplets without any ventricular tachycardia. Late recovery without any significant arrhythmias or ischemic changes. Correlate clinically. Chhaya Dangelo - KARLA/meg/BONG doc#: [id number]/job#: [id number] dd: 11/04/2024 16:46:00 dt: 11/04/2024 18:09:00 DICTATING /COPIES TO: Goyo Flores MD COPIES MNE: POWER;
== END ==
LOC: NUCM 15:21
PROVIDERS: Family Provider Family Medicine; PCP Family Medicine; Referring Provider Family Medicine; Visit Provider Family Medicine
DX: R07.9 Chest pain, unspecified (principal); R03.0 Elevated blood-pressure reading, without diagnosis of hypertension
CPT/HCPCS: 93017

== ENCOUNTER 2024-11-23 17:00 | Outpatient (RCR) | payer OTHER, SELFPAY ==
--- NOTE | 2024-10-11 16:52 | PT.OPPOC ---
Physical, Occupational & Speech Therapy At [facility] Current Diagnoses Pain in unspecified shoulder (10/11/24) Spondylosis without myelopathy or radiculopathy, cervical region (10/11/24) Cervicalgia (10/11/24) Pain in arm, unspecified (10/11/24) Visit Care Team Role Provider Type Antony Hodges MD Attending Provider Physician Family Provider Primary Care Provider Referring Provider Specialty: Family Practice Address: [address] [place] [address], [address], [facility] Email: [email or web address] Plan Of Care PT OP: Cervical/Upper Extremity Start: 10/06/24 09:15 Freq: Status: Active Protocol: Document 10/11/24 13:04 [facility] (Rec: 10/11/24 13:52 [facility] [id number]) Out-Patient Physical Therapy Visit Information Visit Information Visit Type Initial Evaluation Visit Start Time 13:03 Visit Stop Time 13:48 Visit Number 1 Number of COMMANDING OFFICER GARAGE Visits 0 Progress Note Due 11/10/24 Current Condition History of Current Condition Onset Date early August Current Complaints neck pain, RUE weakness History of Current pain started with pain down R arm, some chest pain and Condition nausea and high BP and they did a lot of cardiac tests which were all neg. started with some gentle AROM stretching exercises that she did for her L shoulder when she had frozen shoulder. They gave her gabapentin and then she was able to sleep. She notes she got a xray that showed some arthritis and was recommended to PT. has less radiating pain but RUE feels heavy and weak. Started aggressively on pelaton prior to this and wonders if that was it. Got back on a week ago and noticed that exacerbated the pain so stopped it. Has done massage a couple times and that did help. Uncomfortable when on the computer and R arm feels super heavy. Has noticed R shoulder is higher and that new. blowdrying hair, arm feels more tired. later in the day, feels worse. Feels weird in forearm sometimes mostly medially along pinky side. Was moving dgt out of apt and slipped and caught head on windowsill and felt something on L side of neck. minor MORAN since this or occasionally. denies nausea, dizziness, fatigue, lightheadness. Feels like has always had some tension in upper shoulders and neck. Has some LBP. Treatment [facility]als [facility], not have RUE be weak during activity, Goals improve posture Patient Questionnaires Neck Disability Index NDI Score 16% Quick Dash- Upper Extremity Quick Dash UE Score 18.18 Posture Evaluation [facility] Postural Classification System Isaiah Postural Posterior/Anterior Classifications Elbow Flexion Test 0 Comments Posture Comments head SB R slightly, fwd head, inc kyphosis, R>L scap abd and ant tip Cervical Spine Range of Motion Cervical Spine Active Degrees Flexion 68 Extension 40 Rotation Left 63 Rotation Right 51 Lateral Flexion Left 32 Lateral Flexion 28 Right Comments thoracic rotation pain R: 45; L 65 Special Tests Cervical Spine Special Tests reflexes Test Results brachialis, biceps, triceps 2+ b ligamentous testing Test Results neg Alar, tectoral membrane and transverse ligament arterial screen Comments neg positional testing, ausciltation to carotid and heart WNL nerve tension Test Results R positive radial and median; neg L; neg B ulnar Traction Test Results neg traction and compression spurling Comments neg Shoulder Strength Shoulder Manual Muscle Testing Right Flexion 4 Good Extension 4+ Good+ Abduction (C5) 4- Good- External Rotation 4 Good Internal Rotation 5 Normal Left Flexion 4+ Good+ Extension 5 Normal Abduction (C5) 4+ Good+ External Rotation 5 Normal Internal Rotation 5 Normal Elbow/Forearm Strength Elbow and Forearm Manual Muscle Testing Right Flexion (C6) 4 Good Extension (C7) 4+ Good+ Left Flexion (C6) 5 Normal Extension (C7) 5 Normal Wrist Strength Wrist Manual Muscle Testing Right Flexion (C7) 4+ Good+ Extension (C6) 4+ Good+ Left Flexion (C7) 5 Normal Extension (C6) 5 Normal Hand Service Technician Copier/Pinch Strength Hand Dominance Hand Dominance Right Hand Strength Right Comments 45lb 53 lb, 65lb Left Comments 45 lb, 55lb , 54lb Therapeutic Exercises Sidelying Exercises open book Side bilateral Reps/Minutes 5 ea Comments cues thoracic rotation Standing Exercises wall posture Standing Exercise w/UE ext Name Side bilateral Reps/Minutes 30 sec x2 Self-Care/Home Management Treatment Education Other Education 10 min: edu to pt on importance of posture at desk and bike and asked for pics. edu to pt re: postural changes and how noted changes likely putting inc tension on neural system and positive median and radial n tension. Physical Therapy Assessment Rehab Potential Rehabilitation Good Potential Evaluation Complexity Number of Personal 1-2 Factors/ Comorbidities Number of Body 4 or More Systems Impaired Clinical Evolving Presentation at Evaluation Impairments Impairments Activity Tolerance,Balance,Functional Activities, Functional Mobility,Pain,Posture,ROM,Soft Tissue Mobility,Strength Goals activities Short Term Goal (STG Pt will report no difficulty with use of arm w/overhead ) activities like blow drying hair STG Duration 11/10 Account Processor Goal (LTG) Pt will be able to ride stationary bike w/o pain or arm heaviness LTG Duration 01/09 strength Short Term Goal (STG Pt will demonstrate independence w/HEP by being able to ) perform with no more than min cues. STG Duration 12/03 Account Processor Goal (LTG) Pt will score at least 4+/5 on all BUE MMT and at least 3/5 EFT to show improved strength to allow pt to do typical daily activities including working out w/o pain LTG Duration 01/09 Assessment Summary Assessment Pt presents w/neck pain w/initial symptoms being radicular pain into RUE that has changed to overall weakness and feeling weird of RUE with pain still noted when she tries to use her stationary bike. 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 She has significantly fwd posture w/inc kyphosis and fwd head likely inc tension on neural system w/pt having positive median and radial n testing on the R. She would benefit form skilled PT to address these deficits to return her to ADLs , work , and working out w/pain or UE heaviness Physical Therapy Plan Frequency and Duration Frequency of 2x/Week Treatment Duration of 12 treatment (weeks) Plan of Care Start 10/11/24 Date Plan of Care End 01/09/25 Date Therapeutic Interventions Therapeutic Gait Training,Home Exercise Program,Joint Mobilizations Interventions ,Manual Therapy,Neuromuscular Re-education,Patient/ Caregiver Education,Self-Care/Home Management,Soft Tissue Mobilization,Taping,Therapeutic Activities, Therapeutic Exercises Modalities Cold Pack/Ice Massage,Electric Stimulation,Hot Packs, Infrared Therapy,Traction- Mechanical,Ultrasound Next Visit Focus/Plan Next Note Type Treatment Note Next Visit Plan review exercises, work on thoracic mobility manually and ribs, exercises for posture (row, B ER), plank at wall, chin tuck, manual to pec and neck look at pics of desk and bike positioning Plan of Care Dates Plan of Care Start Date 10/11/24 Plan of Care End Date 01/09/25 Electronically Signed by: Dena Gillis, PT 10/11/24 8988 If you are in agreement with this Plan of Care, please return a signed and dated copy. I have reviewed this Plan of Care and certify that the skilled therapy services above are required to meet the patient?s needs. Physician Signature Date Printed Name and Credentials Clinical Instructor Signature Printed Name and Credentials
--- NOTE | 2024-10-19 18:10 | PT.OTN ---
Current Diagnoses Pain in unspecified shoulder (10/19/24) Spondylosis without myelopathy or radiculopathy, cervical region (10/19/24) Cervicalgia (10/19/24) Pain in arm, unspecified (10/19/24) Physical Therapy Treatment Note PT OP: Cervical/Upper Extremity Start: 10/06/24 09:15 Freq: Status: Active Protocol: Document 10/19/24 15:14 [facility] (Rec: 10/19/24 16:21 [facility] [id number]) Out-Patient Physical Therapy Visit Information Visit Information Visit Type Treatment Note Visit Note Visit [email or web address]: [email or web address] Visit Start Time 15:17 Visit Stop Time 16:01 Visit Number 2 Number of NUT FEEDER Visits 1 Progress Note Due 11/10/24 OP-PT Subjective Patient Comments Patient Comments Patient reports she feels good today, much better than last week, just taking Gabapentin at night. Patient reports having no numbness R UE. Therapeutic Exercises Sidelying Exercises open book Side bilateral Reps/Minutes 5 ea for 3-5 breaths Comments VC and tactile cues for LE position Standing Exercises row Standing Exercise single arm row Name Side bilateral Resistance level 1 band Reps/Minutes X10 Comments verbal and visual cue wall posture Standing Exercise 1. for PT ed avoiding high heels ( standing on tip toes Name ) Reps/Minutes 1-2 min Comments VC for head to wall in normal stance and standing of tip toes, Therapeutic Activity Therapeutic Activity text neck Comments Patient ed with photos and use of cane with 2 lb weight to simulate the force Manual Therapy Treatment Consent Patient gave verbal Yes consent for manual treatment Soft Tissue Mobilization thoracic paraspinals Body Location bilateral Mobilization Type Sustained Pressure Intensity/Depth Moderate Body Position Sidelying pec Body Location Bilateral Mobilization Type Cross-Friction,Rolling Intensity/Depth Moderate Body Position Hooklying CS Body Location UT/ scalene at lat clavicle, CS paraspinals Bilateral Mobilization Type Cross-Friction,Rolling,Sustained Pressure Intensity/Depth Moderate Body Position Sitting Self-Care/Home Management Treatment Education Other Education Discussed 90/90 positioning at desk and position of eyes to screen. Also discussed readers for reading a book would not necessarily be the best for a computer screen when seated at a desk. Physical Therapy Assessment Goals activities Short Term Goal (STG Pt will report no difficulty with use of arm w/overhead ) activities like blow drying hair STG Duration 10/2 Custodial Goal (LTG) Pt will be able to ride stationary bike w/o pain or arm heaviness LTG Duration 01/09 strength Short Term Goal (STG Pt will demonstrate independence w/HEP by being able to ) perform with no more than min cues. STG Duration 12/03 Custodial Goal (LTG) Pt will score at least 4+/5 on all BUE MMT and at least 3/5 EFT to show improved strength to allow pt to do typical daily activities including working out w/o pain LTG Duration 01/09 Assessment Summary Assessment Patient reports feeling good end of sessions, comments some soreness like muscles have worked. Patient did not bring in photos of desk and bike. Discussed 90/90 positioning at desk and position of eyes to screen. Physical Therapy Plan Frequency and Duration Frequency of 2x/Week Treatment Duration of 12 treatment (weeks) Plan of Care Start 10/11/24 Date Plan of Care End 01/09/25 Date Therapeutic Interventions Therapeutic Gait Training,Home Exercise Program,Joint Mobilizations Interventions ,Manual Therapy,Neuromuscular Re-education,Patient/ Caregiver Education,Self-Care/Home Management,Soft Tissue Mobilization,Taping,Therapeutic Activities, Therapeutic Exercises Modalities Cold Pack/Ice Massage,Electric Stimulation,Hot Packs, Infrared Therapy,Traction- Mechanical,Ultrasound Next Visit Focus/Plan Next Note Type Treatment Note Next Visit Plan review exercises, work on thoracic mobility manually and ribs, exercises for posture (row, B ER), plank at wall, chin tuck, manual to pec and neck look at pics of desk and bike positioning
--- NOTE | 2024-10-26 17:59 | PT.OTN ---
Current Diagnoses Pain in unspecified shoulder (10/26/24) Spondylosis without myelopathy or radiculopathy, cervical region (10/26/24) Cervicalgia (10/26/24) Pain in arm, unspecified (10/26/24) Physical Therapy Treatment Note PT OP: Cervical/Upper Extremity Start: 10/06/24 09:15 Freq: Status: Active Protocol: Document 10/26/24 17:05 AB (Rec: 10/26/24 17:59 AB [id number]) Out-Patient Physical Therapy Visit Information Visit Information Visit Type Treatment Note Visit Note Visit [email or web address] Access Code: [email or web address] Visit Start Time 17:05 Visit Stop Time 17:52 Visit Number 3 Number of ELECTRICAL EQUIPMENT TECHNICIAN Visits 2 Progress Note Due 11/10/24 OP-PT Subjective Patient Comments Patient Comments Patient reports she is having a flare up today, in the last 5 hours. Patient reports she has been doing the exercises and they do not bother. Patient reports she stopped taking the Gabapentin since . Patient rates pain 4/10 more discomfort. R UT close to the neck and 6 inches down, R UE numb down to the elbow, more weakness than numb. Patient attributes stress is a factor. Therapeutic Exercises Supine Exercises mini band Supine Exercise Name ER with flexion Side bilateral Resistance Level one band Reps/Minutes X 10 Comments Verbal cues Sidelying Exercises open book Side bilateral Reps/Minutes 10ea for 3-5 breaths Comments VC and tactile cues for LE position Standing Exercises high row Side bilateral Resistance level 2 band Reps/Minutes X 15 Comments verbal and visual cues Manual Therapy Treatment Soft Tissue Mobilization thoracic paraspinals Body Location bilateral Mobilization Type Sustained Pressure Intensity/Depth Moderate Body Position Sidelying pec Body Location Bilateral Mobilization Type Cross-Friction,Rolling Intensity/Depth Moderate Body Position Hooklying CS Body Location UT/ scalene at lat clavicle, CS paraspinals Bilateral Mobilization Type Cross-Friction,Rolling,Sustained Pressure Intensity/Depth Moderate Body Position Sitting Physical Therapy Assessment Goals activities Short Term Goal (STG Pt will report no difficulty with use of arm w/overhead ) activities like blow drying hair STG Duration 10 Patrol Captain Goal (LTG) Pt will be able to ride stationary bike w/o pain or arm heaviness LTG Duration 12 strength Short Term Goal (STG Pt will demonstrate independence w/HEP by being able to ) perform with no more than min cues. STG Duration 12/03 Fci Goal (LTG) Pt will score at least 4+/5 on all BUE MMT and at least 3/5 EFT to show improved strength to allow pt to do typical daily activities including working out w/o pain LTG Duration 01/09 Assessment Summary Assessment AROM R shoulder flexion 154 deg end of session, patient reports having less neck pain and way less scapular pain end of session. Physical Therapy Plan Frequency and Duration Frequency of 2x/Week Treatment Duration of 12 treatment (weeks) Plan of Care Start 10/11/24 Date Plan of Care End 01/09/25 Date Next Visit Focus/Plan Next Note Type Treatment Note Next Visit Plan review exercises, work on thoracic mobility manually and ribs, exercises for posture plank at wall, chin tuck, manual to pec and neck look at pics of desk and bike positioning
--- NOTE | 2024-11-09 14:40 | PT.OPPN ---
Current Diagnoses Pain in unspecified shoulder (11/09/24) Spondylosis without myelopathy or radiculopathy, cervical region (11/09/24) Cervicalgia (11/09/24) Pain in arm, unspecified (11/09/24) Physical Therapy Progress Note PT OP: Cervical/Upper Extremity Start: 10/06/24 09:15 Freq: Status: Active Protocol: Document 11/09/24 13:51 [facility] (Rec: 11/09/24 14:37 [facility] [id number]) Out-Patient Physical Therapy Visit Information Visit Information Visit Type Progress Note Visit Start Time 13:50 Visit Stop Time 14:30 Visit Number 4 Number of PRIEST Visits 0 Progress Note Due 12/09/24 OP-PT Subjective Patient Comments Patient Comments Has ergo mouse now and slowly getting used to it. Overall doing better. Feels like head is heavy right here. Some radiating pain down arm. A little in her scap recently. does think slept funny last night Posture Evaluation Isaiah Postural Classification System Elbow Flexion Test 3 Cervical Spine Range of Motion Cervical Spine Active Degrees Flexion 68 Extension 38 Rotation Left 64 Rotation Right 63 Lateral Flexion Left 44 Lateral Flexion 37 Right Comments thoracic rotation pain R: 54; L 61 some dizziness w/flex Shoulder Strength Shoulder Manual Muscle Testing Right Flexion 4+ Good+ Extension 5 Normal Abduction (C5) 4+ Good+ External Rotation 4+ Good+ Internal Rotation 5 Normal Horizontal Abduction 4+ Good+ Horizontal Adduction 4+ Good+ Therapeutic Exercises Supine Exercises foam roll Supine Exercise Name 1. flex 2. Habd 3. abd 4. tspine ext over Side bilateral Reps/Minutes 10 ea Comments cues back down Standing Exercises Habd Standing Exercise w/flex Name Side bilateral Equipment Used L3 Reps/Minutes 5 Comments cues band tighter row Standing Exercise double arm Name Side bilateral Equipment Used L3 Reps/Minutes 10 Comments max cues scap Manual Therapy Treatment Consent Patient gave verbal Yes consent for manual treatment Soft Tissue Mobilization thoracic paraspinals Body Location R paraspinals and rhomboids, lats Mobilization Type Sustained Pressure Intensity/Depth Moderate Body Position Sidelying Comments lats and rhomboids w/cupping w/scap dep CS Body Location R UT, LS, scalenes Mobilization Type Rolling,Sustained Pressure Intensity/Depth Moderate Body Position Sidelying Joint Mobilizations cervical Comments transverse glide L C4, 5 and 7 c/r w/sb ribs Comments caudal R c/r s/l, general down lower ribs s/l w/shrug up thoracic Comments transverse L T5-7 c/r w/scap ; seated PA T6-9 c/r w/ arms on mat-pt slipped on stool and sat to ground Physical Therapy Assessment Goals activities Short Term Goal (STG Pt will report no difficulty with use of arm w/overhead ) activities like blow drying hair STG Duration achieved 11/09 Jail Goal (LTG) Pt will be able to ride stationary bike w/o pain or arm heaviness 11/09-hasn't tried yet LTG Duration 01/09 strength Short Term Goal (STG Pt will demonstrate independence w/HEP by being able to ) perform with no more than min cues. STG Duration 12/03 Jail Goal (LTG) Pt will score at least 4+/5 on all BUE MMT and at least 3/5 EFT to show improved strength to allow pt to do typical daily activities including working out w/o pain LTG Duration 01/09 Assessment Summary Assessment Pt making improved ROM and strength with less pain but does still have dec neck and thoracic mobility contributing to her pain> Improves w/manual. Cont PT to dec pain and imprvoe function. Physical Therapy Plan Frequency and Duration Frequency of 2x/Week Treatment Duration of 12 treatment (weeks) Plan of Care Start 10/11/24 Date Plan of Care End 01/09/25 Date Therapeutic Interventions Therapeutic Gait Training,Home Exercise Program,Joint Mobilizations Interventions ,Manual Therapy,Neuromuscular Re-education,Patient/ Caregiver Education,Self-Care/Home Management,Soft Tissue Mobilization,Taping,Therapeutic Activities, Therapeutic Exercises Modalities Cold Pack/Ice Massage,Electric Stimulation,Hot Packs, Infrared Therapy,Traction- Mechanical,Ultrasound Next Visit Focus/Plan Next Note Type Treatment Note Next Visit Plan review exercises, work on thoracic mobility manually and ribs, exercises for posture plank at wall, chin tuck, manual to pec and neck look at pics of desk and bike positioning
--- NOTE | 2024-11-23 18:11 | PT.OPPN ---
Addendum entered and electronically signed by Gela Malhotra 11/23/24 18:14: Performed manual therapy bilateral thoracic spine Grade III PA thoracic mobilizations T 1 through T 12 patient prone, scapular mobilization bilateral into dep and add IV X 10 each mob each UE, thoracic para spinals STM sustained pressure, and cross friction to intervertebral tissue. Original Note: Current Diagnoses Pain in unspecified shoulder (11/23/24) Spondylosis without myelopathy or radiculopathy, cervical region (11/23/24) Cervicalgia (11/23/24) Pain in arm, unspecified (11/23/24) Physical Therapy Progress Note PT OP: Cervical/Upper Extremity Start: 10/06/24 09:15 Freq: Status: Active Protocol: Document 11/23/24 17:06 [facility] (Rec: 11/23/24 18:11 [facility] [id number]) Out-Patient Physical Therapy Visit Information Visit Information Visit Type Progress Note Visit Note AVIATION TECHNICIAN [employer]CRAFT jose bell w/pt from 1737 to 1754 Visit Start Time 17:05 Visit Stop Time 17:54 Visit Number 5 Number of AVIATION TECHNICIAN AIRCRAFT Visits 0 Progress Note Due 12/23/24 OP-PT Subjective Patient Comments Patient Comments exercises have been good. has felt stronger. nothing bothering her as much. Weakness persists in R shoulder . no numbness. Posture Evaluation Isaiah Postural Classification System Elbow Flexion Test 4 Shoulder Strength Shoulder Manual Muscle Testing Right Flexion 4+ Good+ Extension 5 Normal Abduction (C5) 5 Normal External Rotation 5 Normal Internal Rotation 5 Normal Horizontal Abduction 5 Normal Horizontal Adduction 5 Normal Therapeutic Exercises Sitting Exercises chin tuck Sitting Exercise set up in tuck w/L2 pull fwd Name Side bilateral Reps/Minutes 10 isometrics Sitting Exercise 1. SB B 2. ext 3. flex Name Side bilateral Reps/Minutes 5x5 sec ea Comments cues neutral posture Other Exercises serratus punch Other Exercise Name in quadruped Side bilateral Reps/Minutes 10 cat/cow Other Exercise Name w/rock backs in ext Reps/Minutes 10 plank Other Exercise Name forearm and knee Side bilateral Reps/Minutes 20 sec x2 bird dog Other Exercise Name alt LE ext only Side bilateral Reps/Minutes 10 Comments tactile and VC for back position Manual Therapy Treatment Consent Patient gave verbal Yes consent for manual treatment Joint Mobilizations thoracic Comments in prone prop transverse glide T9 L c/r; R T8 c/r; UPA T 7-8 in prone prop w/rot Physical Therapy Assessment Goals activities Short Term Goal (STG Pt will report no difficulty with use of arm w/overhead ) activities like blow drying hair STG Duration achieved 11/09 Orthodontic Lab Technician Goal (LTG) Pt will be able to ride stationary bike w/o pain or arm heaviness 11/09-hasn't tried yet 11/23-hasn't tried yet LTG Duration 01/09 strength Short Term Goal (STG Pt will demonstrate independence w/HEP by being able to ) perform with no more than min cues. STG Duration acheived advancing as able Intermediate Goal (LTG) Pt will score at least 4+/5 on all BUE MMT and at least 3/5 EFT to show improved strength to allow pt to do typical daily activities including working out w/o pain 11/23-achieved w/MMT but does still have some feeling of weakness w/work LTG Duration 01/09 Assessment Summary Assessment Pt is making excellent progress w/PT w/dec UE symptoms and improved function but has yet to return to working out. She has much improved strength but has dec cervical stability and required a lot of cues w/ exercises today. This is likely d/t cont thoracic restrictions. Cont PT for improvements in posture, and cervical stability to improve comfort in daily life. Physical Therapy Plan Frequency and Duration Frequency of 2x/Week Treatment Duration of 12 treatment (weeks) Plan of Care Start 10/11/24 Date Plan of Care End 01/09/25 Date Therapeutic Interventions Therapeutic Gait Training,Home Exercise Program,Joint Mobilizations Interventions ,Manual Therapy,Neuromuscular Re-education,Patient/ Caregiver Education,Self-Care/Home Management,Soft Tissue Mobilization,Taping,Therapeutic Activities, Therapeutic Exercises Modalities Cold Pack/Ice Massage,Electric Stimulation,Hot Packs, Infrared Therapy,Traction- Mechanical,Ultrasound Next Visit Focus/Plan Next Note Type Treatment Note Next Visit Plan review exercises, work on thoracic mobility manually and ribs, exercises for posture plank at wall, chin tuck, manual to pec and neck look at pics of desk and bike positioning
--- NOTE | 2025-01-26 16:05 | PT.OPDS ---
Current Diagnoses Pain in unspecified shoulder (11/23/24) Spondylosis without myelopathy or radiculopathy, cervical region (11/23/24) Cervicalgia (11/23/24) Pain in arm, unspecified (11/23/24) Visit Care Team Role Provider Type Antony Hodges MD Attending Provider Physician Family Provider Primary Care Provider Referring Provider Specialty: Family Practice Address: [address] [place] [address], [address], [facility] Email: [email or web address] Visit Number Visit Number 5 Discharge Summary PT OP: Cervical/Upper Extremity Start: 10/06/24 09:15 Freq: Status: Active Protocol: Document 01/26/25 16:04 [facility] (Rec: 01/26/25 16:05 [facility] [id number]) Out-Patient Physical Therapy Visit Information Visit Information Visit Type Discharge Summary Physical Therapy Assessment Goals activities Short Term Goal (STG Pt will report no difficulty with use of arm w/overhead ) activities like blow drying hair STG Duration achieved 11/09 Financial Services Technician Goal (LTG) Pt will be able to ride stationary bike w/o pain or arm heaviness 11/09-hasn't tried yet 11/23-hasn't tried yet LTG Duration 01/09 strength Short Term Goal (STG Pt will demonstrate independence w/HEP by being able to ) perform with no more than min cues. STG Duration acheived advancing as able Usp Goal (LTG) Pt will score at least 4+/5 on all BUE MMT and at least 3/5 EFT to show improved strength to allow pt to do typical daily activities including working out w/o pain 11/23-achieved w/MMT but does still have some feeling of weakness w/work LTG Duration 01/09 Assessment Summary Assessment Pt has not been seen in 2 months at this time and was doing well at last session w/good progress and exercise compliance. Discussed w/pt via email to get new referral if needs further PT Physical Therapy Plan Discharge Physical Therapy Discharge Reasons No Longer Attending PT
== END 2025-01-27 10:05 | disposition home or self-care (01) ==
LOC: PHYS 17:00
PROVIDERS: Family Provider Family Medicine; PCP Family Medicine; Referring Provider Family Medicine; Visit Provider Family Medicine
DX: M47.812 Spondylosis without myelopathy or radiculopathy, cervical region (principal); M79.603 Pain in arm, unspecified; M25.519 Pain in unspecified shoulder; M54.2 Cervicalgia
CPT/HCPCS: 97110; 97140; 97162